=== PATIENT | male | born 1965 | race Hispanic/Latino ===

== ENCOUNTER 2017-07-03 18:07 | Emergency (ER) | payer MEDICARE ==
--- NOTE | 2017-07-03 19:26 | Emergency Department Report ---
ED General Adult HPI - General Chief complaint: Dyspnea/Respdistress Stated complaint: NICO Time Seen by Provider: 07/03/17 19:02 Source: patient Mode of arrival: Ambulatory Limitations: No Limitations - History of Present Illness Initial comments: Patient is a 52-year-old male who is presenting with shortness of breath. Patient states he was just released from the hospital prior to his admission to the emergency department. Patient has had a cough and respiratory issues past several days. Patient discharged with Tessalon and steroids. Patient was actually to be taken to [facility] for continued mental health care. Patient states he has not been outside for approximately 6 days and he when he went outside the temperature was warm and he felt like he couldn't breathe. Patient started to sweat and was brought back to the emergency department. Patient states he feels fine at this time. Patient is in no acute distress states he feels as though he is back at his baseline. At the time patient states he was just hot hyperventilating and didn't want to leave the hospital - Related Data Previous Rx's Medication Instructions Recorded Last Taken Type Benzonatate [Tessalon Perles] 100 mg PO TID PRN #20 capsule 07/03/17 Unknown Rx Hydrocortisone [Cortef TAB] 5 mg PO QPM #30 tablet 07/03/17 Unknown Rx Hydrocortisone [Cortef TAB] 15 mg PO QAM #30 tablet 07/03/17 Unknown Rx Meclizine [Antivert] 25 mg PO Q8H #90 tablet 07/03/17 Unknown Rx Mirtazapine [Remeron] 15 mg PO QHS tablet 07/03/17 Unknown Rx Allergies Allergy/AdvReac Type Severity Reaction Status Date / Time No Known Allergies Allergy Unverified 07/03/17 19:01 ED Review of Systems ROS: Stated complaint: NICO Other details as noted in HPI Comment: All other systems reviewed and negative ED Past Medical Hx - Past Medical History Previous Medical History?: Yes Hx Psychiatric Treatment: Yes (substance abuse (narcotics)) Hx Asthma: Yes Additional medical history: pituitary gland tumor, low blood pressure, vertigo. Depression, Anxiety - Surgical History Past Surgical History?: Yes Additional Surgical History: pituitary gland surgery, hernia repair, right knee athroscopy - Social History Smoking Status: Never Smoker Substance Use Type: None - Medications Home Medications: Home Medications Medication Instructions Recorded Confirmed Last Taken Type Benzonatate [Tessalon Perles] 100 mg PO TID PRN #20 capsule 07/03/17 Unknown Rx Hydrocortisone [Cortef TAB] 5 mg PO QPM #30 tablet 07/03/17 Unknown Rx Hydrocortisone [Cortef TAB] 15 mg PO QAM #30 tablet 07/03/17 Unknown Rx Meclizine [Antivert] 25 mg PO Q8H #90 tablet 07/03/17 Unknown Rx Mirtazapine [Remeron] 15 mg PO QHS tablet 07/03/17 Unknown Rx ED Physical Exam - General Limitations: No Limitations General appearance: alert, in no apparent distress - Head Head exam: Present: atraumatic, normocephalic - Eye Eye exam: Present: normal appearance - ENT ENT exam: Present: mucous membranes moist - Neck Neck exam: Present: normal inspection - Respiratory Respiratory exam: Present: normal lung sounds bilaterally. Absent: respiratory distress - Cardiovascular Cardiovascular Exam: Present: regular rate, normal rhythm. Absent: systolic murmur, diastolic murmur, rubs, gallop - GI/Abdominal GI/Abdominal exam: Present: soft, normal bowel sounds - Rectal Rectal exam: Present: deferred - Extremities Exam Extremities exam: Present: normal inspection - Back Exam Back exam: Present: normal inspection - Neurological Exam Neurological exam: Present: alert, oriented X3 - Psychiatric Psychiatric exam: Present: normal affect, normal mood - Skin Skin exam: Present: warm, dry, intact, normal color. Absent: rash ED Course Vital Signs 07/03/17 07/03/17 18:51 19:05 Temperature 97.6 F Pulse Rate 65 Respiratory 16 16 Rate Blood Pressure 105/70 O2 Sat by Pulse 99 100 Oximetry ED Medical Decision Making - Medical Decision Making Was just released from the hospital and deems stable by the hospital staff. Patient's vital signs are within normal limits here in the emergency department. Patient states that because of the patient's pituitary tumor he does run a low blood pressure. Patient states the blood pressure [id number] systolic C a good blood pressure for him. Patient at this time of discharge states that he has no further symptoms and he believes that the hot weather triggered possibly an anxiety attack. Patient be discharged home at this time. Critical care attestation.: If time is entered above; I have spent that time in minutes in the direct care of this critically ill patient, excluding procedure time. ED Disposition Clinical Impression: Dyspnea, Anxiety reaction Disposition: DC-01 TO HOME OR SELFCARE Is pt being admited?: No Does the pt Need Aspirin: No Condition: Stable
[2017-07-03 19:45] VITALS: BP 104/69
== END 2017-07-03 20:29 | disposition home or self-care (01) ==
LOC: ED 18:07
DX: F41.9 Anxiety disorder, unspecified (principal)
CPT/HCPCS: 99282